=== PATIENT | male | born 1965 | race Caucasian/White ===

== ENCOUNTER 2022-06-06 08:36 | Emergency (ER) | payer BC, OTHER ==
[2022-06-06] MEDS ORDERED: NA CHLORIDE 0.9% 1,000 ML ONE (09:08)
[2022-06-06] MEDS ORDERED: MORPHINE 4 MG/ML SYR ONE ×2 (09:08→11:41)
[2022-06-06] MEDS ORDERED: ONDANSETRON 4 MG/2 ML VIAL ONE (09:08)
[2022-06-06 09:36] LABS: Absolute Lymphocytes (CBC) 1.1 K/uL (0.7-4.9); Hematocrit 38.8 % (39.6-49.0); Lymphocytes % 9.8 % (15.3-44.8); MCV 85.5 fL (80-100); MPV 8.2 fL (7.6-11.3); RBC Red Blood Cell Count 4.53 M/uL (4.33-5.43)
[2022-06-06 09:54] LABS: Albumin 3.9 g/dL (3.4-5.0); Bilirubin Total 0.7 mg/dL (0.2-1.0); Potassium 3.8 mmol/L (3.5-5.1); Protein, Total 7.4 g/dL (6.4-8.2)
--- NOTE | 2022-06-06 10:24 | RAD REPORT ---
EXAM DESCRIPTION: CT - Abdomen Pelvis W Contrast - 06/06/2022 10:12 am CLINICAL HISTORY: Abdominal pain/left lower quadrant pain COMPARISON: none. TECHNIQUE: Computed axial tomography of the abdomen pelvis was obtained. 100 cc Isovue-300 was admin istered intravenously. Oral contrast was not requested which limits evaluation of bowel and appendix All CT scans are performed using dose optimization technique as appropriate and may include automated exposure control or mA/KV adjustment according to patient size. FINDINGS: Mild fatty liver. The spleen, pancreas, adrenals and left kidney appear unremarkable Postsurgical changes involve the right kidney. Diverticula stem from the colon. Mild to moderate stranding adjacent to proximal sigmoid colon. No ab scess. No free air Small umbilical hernia. Small inguinal hernias IMPRESSION: Mild to moderate sigmoid diverticulitis
[2022-06-06 10:34] LABS: Urine Blood Trace-lysed (Negative); Urine Glucose Negative (Negative); Urine Protein Negative (Negative); Urine pH 5.5 (5.0-7.0)
[2022-06-06] MEDS ORDERED: CIPROFLOXACIN HCL 500 MG TAB ONE (11:03)
[2022-06-06] MEDS ORDERED: METRONIDAZOLE 500mg IVPB 500 MG/100 ML BAG IV ONE (11:03)
--- NOTE | 2022-06-06 11:33 | ER ---
Nurse's Notes [facility] Name: Drake Claudio Age: 56 yrs Sex: Male : 1965 Arrival Date: 06/06/2022 Time: 08:39 Bed 15 Private MD: Diagnosis: Diverticulitis of large intestine without perforation or abscess without bleeding Presentation: 06/06 08:49 Chief complaint: Patient states: LLQ pain since yesterday, denies n/v/d , hx of iw diverticulitis. Coronavirus screen: At this time, the client does not indicate any symptoms associated with coronavirus-19. Ebola Screen: Patient negative for fever greater than or equal to 101.5 degrees Fahrenheit, and additional compatible Ebola Virus Disease symptoms Patient denies exposure to infectious person. Patient denies travel to an Ebola-affected area in the 21 days before illness onset. No symptoms or risks identified at this time. Initial Sepsis Screen: Does the patient meet any 2 criteria? No. Patient's initial sepsis screen is negative. Does the patient have a suspected source of infection? No. Patient's initial sepsis screen is negative. Risk Assessment: Do you want to hurt yourself or someone else? Patient reports no desire to harm self or others. Onset of symptoms was June 05, 2022. 08:49 Method Of Arrival: Ambulatory iw 08:49 Acuity: JUSTINE 3 iw Historical: - Allergies: 08:50 No Known Allergies; iw - Home Meds: 08:50 duloxetine 30 mg oral cpDR 1 cap once daily [Active]; losartan-hydrochlorothiazide iw 100-12.5 mg oral tab 1 tab once daily [Active]; trazodone 100 mg Oral tab 1 tab nightly [Active]; atorvastatin 10 mg oral tab 1 tab once daily [Active]; - Immunization history:: Client reports receiving the 2nd dose of the Covid vaccine. - Social history:: Smoking status: Patient/guardian denies using tobacco, the patient reports quitting approximately 8 years ago. Screenin:05 Abuse screen: Denies threats or abuse. Nutritional screening: No deficits noted. vg1 Tuberculosis screening: No symptoms or risk factors identified. Fall Risk No fall in past 12 months (0 pts). No secondary diagnosis (0 pts). IV access (20 points). Ambulatory Aid- None/Bed Rest/Nurse Assist (0 pts). Gait- Normal/Bed Rest/Wheelchair (0 pts) Mental Status- Oriented to own ability (0 pts). Total Man Fall Scale indicates No Risk (0-24 pts). Assessment: 09:05 General: Appears in no apparent distress. uncomfortable, Behavior is calm, cooperative. vg1 Pain: Complains of pain in left lower quadrant Pain currently is 3 out of 10 on a pain scale. at worst was 7 out of 10 on a pain scale. Pain began 2-3 days ago. Neuro: Level of Consciousness is awake, alert, obeys commands, Oriented to person, place, time, situation. Cardiovascular: Patient's skin is warm and dry. Respiratory: Airway is patent Respiratory effort is even, unlabored. GI: Abdomen is round non-distended, Last BM was May 07, 2022. stated 'small' BM this morning 'not usual BM' Bowel sounds present X 4 quads. Abdomen is tender to palpation in left lower quadrant Patient currently denies diarrhea, nausea, vomiting. : No signs and/or symptoms were reported regarding the genitourinary system. EENT: No signs and/or symptoms were reported regarding the EENT system. Derm: Skin is intact, is healthy with good turgor. Musculoskeletal: Circulation, motion, and sensation intact. 10:30 Reassessment: Patient appears in no apparent distress at this time. No changes from vg1 previously documented assessment. Patient and/or family updated on plan of care and expected duration. Pain level reassessed. Patient is alert, oriented x 3, equal unlabored respirations, skin warm/dry/pink. 11:30 Reassessment: Patient appears in no apparent distress at this time. Patient and/or vg1 family updated on plan of care and expected duration. Pain level reassessed. Patient is alert, oriented x 3, equal unlabored respirations, skin warm/dry/pink. Vital Signs: 08:49 BP 135 / 74; Pulse 76; Resp 16; Temp 98.5; Pulse Ox 95% on R/A; Weight 117.93 kg; iw Height 5 ft. 11 in. (180.34 cm); Pain 7/10; 09:24 BP 127 / 79; Pulse 80; Resp 16; Pulse Ox 97% on R/A; vg1 10:35 BP 126 / 73; Pulse 67; Resp 16; Pulse Ox 97% on R/A; vg1 08:49 Body Mass Index 36.26 (117.93 kg, 180.34 cm) iw ED Course: 08:39 Patient arrived in ED. am2 08:47 Grzegorz Parker NP is PHCP. pm1 08:47 Sahil Larose MD is Attending Physician. pm1 08:48 Chelsey Rick, RN is Primary Nurse. vg1 08:50 Triage completed. iw 08:51 Arm band placed on. iw 09:05 Patient has correct armband on for positive identification. Bed in low position. Call vg1 light in reach. Side rails up X 1. Pulse ox on. NIBP on. Door closed. Warm blanket given. 09:05 No provider procedures requiring assistance completed. vg1 09:10 Inserted saline lock: 20 gauge in left antecubital area, using aseptic technique. Blood vg1 collected. 09:10 Initial lab(s) drawn, by al, sent to lab. vg1 10:14 CT Abd/Pelvis - IV Contrast Only In Process Unspecified. EDMS 11:58 IV discontinued, intact, bleeding controlled, No redness/swelling at site. Pressure vg1 dressing applied. Administered Medications: 09:11 Drug: NS 0.9% 1000 ml Route: IV; Rate: 1 bolus; Site: left antecubital; vg1 11:58 Follow up: IV Status: Completed infusion; IV Intake: 1000ml vg1 09:11 Drug: Zofran (Ondansetron) 4 mg Route: IVP; Site: left antecubital; vg1 11:59 Follow up: Response: No adverse reaction; Marked relief of symptoms vg1 09:13 Drug: morphine 4 mg {Note: RASS 0.} Route: IVP; Infused Over: 4 mins; Site: left vg1 antecubital; 10:41 Follow up: Response: No adverse reaction; No change in condition vg1 10:59 Drug: Cipro (ciprofloxacin) 500 mg Route: PO; vg1 11:58 Follow up: Response: No adverse reaction vg1 11:04 Drug: Flagyl (metroNIDAZOLE) 500 mg Volume: 100 ml; Route: IVPB; Rate: 200 ml/hr; vg1 Infused Over: 30 mins; Site: left antecubital; 11:58 Follow up: IV Status: Completed infusion; IV Intake: 100ml vg1 11:34 Drug: morphine 4 mg {Note: rass0.} Route: IVP; Infused Over: 4 mins; Site: left vg1 antecubital; :59 Follow up: Response: No adverse reaction; Pain is decreased vg1 Medication: 09:05 VIS not applicable for this client. vg1 Intake: 11:58 IV: 100ml; Total: 100ml. vg1 11:58 IV: 1000ml; Total: 1100ml. vg1 Outcome: 11:33 Discharge ordered by MD. pm1 11:57 Discharged to home ambulatory. vg1 11:57 Condition: good 11:57 Discharge instructions given to patient, Instructed on discharge instructions, follow up and referral plans. medication usage, Demonstrated understanding of instructions, follow-up care, medications, Prescriptions given X 3. 11:59 Patient left the ED. vg1 Signatures: Dispatcher [employer] EDPamela Mondragon RN RN iw Grzegorz Parker, MAG [employer]ER pm1 Teagan Penn Victoria RN RN vg1 Corrections: (The following items were deleted from the chart) 09:20 09:19 Inserted saline lock: 20 gauge in left antecubital area, using aseptic technique. vg1 Blood collected. vg1 09:24 09:05 GI: Abdomen is round non-distended, Last BM was May 07, 2022. stated 'small' BM vg1 this morning 'not usual BM' Bowel sounds present X 4 quads. Abdomen is tender to palpation in left lower quadrant vg1
--- NOTE | 2022-06-06 11:34 | EDPHYS ---
Physician Documentation [facility] Name: Drake Claudio Age: 56 yrs Sex: Male : 1965 Arrival Date: 06/06/2022 Time: 08:39 Bed 15 Private MD: ED Physician Sahil Larose HPI: 06/06 09:06 This 56 yrs old Male presents to ER via Ambulatory with complaints of Abdominal Pain - pm1 LLQ. 09:06 The patient presents with abdominal pain in the left lower quadrant. Onset: The pm1 symptoms/episode began/occurred yesterday. The symptoms do not radiate. Associated signs and symptoms: none. Pertinent negatives: nausea, vomiting, and diarrhea, chest pain, shortness of breath. The symptoms are described as crampy, sharp. Modifying factors: The symptoms are alleviated by nothing, the symptoms are aggravated by nothing. Severity of pain: in the emergency department the pain is actually worse. The patient has experienced similar episodes in the past, a few times, today's symptoms are similar. Historical: - Allergies: 08:50 No Known Allergies; iw - Home Meds: 08:50 duloxetine 30 mg oral cpDR 1 cap once daily [Active]; losartan-hydrochlorothiazide iw 100-12.5 mg oral tab 1 tab once daily [Active]; trazodone 100 mg Oral tab 1 tab nightly [Active]; atorvastatin 10 mg oral tab 1 tab once daily [Active]; - Immunization history:: Client reports receiving the 2nd dose of the Covid vaccine. - Social history:: Smoking status: Patient/guardian denies using tobacco, the patient reports quitting approximately 8 years ago. ROS: 09:06 Constitutional: Negative for fever, chills, and weight loss, Cardiovascular: Negative pm1 for chest pain, palpitations, and edema, Respiratory: Negative for shortness of breath, cough, wheezing, and pleuritic chest pain. 09:06 Back: Negative for injury and pain, : Negative for injury, bleeding, discharge, and swelling, MS/Extremity: Negative for injury and deformity, Skin: Negative for injury, rash, and discoloration, Neuro: Negative for headache, weakness, numbness, tingling, and seizure. 09:06 Abdomen/GI: Positive for abdominal pain, of the left lower quadrant, Negative for nausea, vomiting, and diarrhea. 09:06 All other systems are negative. Exam: 09:06 Constitutional: This is a well developed, well nourished patient who is awake, alert, pm1 and in no acute distress. Head/Face: Normocephalic, atraumatic. 09:06 Back: No spinal tenderness. No costovertebral tenderness. Full range of motion. Skin: Warm, dry with normal turgor. Normal color with no rashes, no lesions, and no evidence of cellulitis. MS/ Extremity: Pulses equal, no cyanosis. Neurovascular intact. Full, normal range of motion. 09:06 Cardiovascular: Exam negative for acute changes, Rate: normal, Rhythm: regular, Pulses: no pulse deficits are appreciated. 09:06 Respiratory: Exam negative for acute changes, respiratory distress, shortness of breath. 09:06 Abdomen/GI: Inspection: obese Palpation: soft, in all quadrants, mild abdominal tenderness, in the left lower quadrant. 09:06 Neuro: Exam negative for acute changes, Orientation: is normal, Mentation: is normal, Motor: is normal, moves all fours. Vital Signs: 08:49 BP 135 / 74; Pulse 76; Resp 16; Temp 98.5; Pulse Ox 95% on R/A; Weight 117.93 kg; iw Height 5 ft. 11 in. (180.34 cm); Pain 7/10; 09:24 BP 127 / 79; Pulse 80; Resp 16; Pulse Ox 97% on R/A; vg1 10:35 BP 126 / 73; Pulse 67; Resp 16; Pulse Ox 97% on R/A; vg1 08:49 Body Mass Index 36.26 (117.93 kg, 180.34 cm) iw MDM: 08:53 Patient medically screened. pm1 11:32 Data reviewed: vital signs. Data interpreted: Pulse oximetry: on room air is 97 %. pm1 Interpretation: normal. Counseling: I had a detailed discussion with the patient and/or guardian regarding: the historical points, exam findings, and any diagnostic results supporting the discharge/admit diagnosis, lab results, radiology results, the need for outpatient follow up, to return to the emergency department if symptoms worsen or persist or if there are any questions or concerns that arise at home. 06/06 08:57 Order name: CBC with Diff; Complete Time: 10:08 pm1 06/06 08:57 Order name: CMP; Complete Time: 10:08 pm1 06/06 08:57 Order name: Lipase; Complete Time: 10:08 pm1 06/06 08:57 Order name: CT Abd/Pelvis - IV Contrast Only; Complete Time: 10:47 pm1 06/06 10:34 Order name: Urine Dipstick-Ancillary; Complete Time: 10:47 EDMS 06/06 08:57 Order name: IV Saline Lock; Complete Time: 09:24 pm1 06/06 08:57 Order name: Labs collected and sent; Complete Time: 09:24 pm1 06/06 08:57 Order name: Urine Dipstick-Ancillary (obtain specimen); Complete Time: 10:41 pm1 Administered Medications: 09:11 Drug: NS 0.9% 1000 ml Route: IV; Rate: 1 bolus; Site: left antecubital; vg1 11:58 Follow up: IV Status: Completed infusion; IV Intake: 1000ml vg1 09:11 Drug: Zofran (Ondansetron) 4 mg Route: IVP; Site: left antecubital; vg1 11:59 Follow up: Response: No adverse reaction; Marked relief of symptoms vg1 09:13 Drug: morphine 4 mg {Note: RASS 0.} Route: IVP; Infused Over: 4 mins; Site: left vg1 antecubital; 10:41 Follow up: Response: No adverse reaction; No change in condition vg1 10:59 Drug: Cipro (ciprofloxacin) 500 mg Route: PO; vg1 11:58 Follow up: Response: No adverse reaction vg1 11:04 Drug: Flagyl (metroNIDAZOLE) 500 mg Volume: 100 ml; Route: IVPB; Rate: 200 ml/hr; vg1 Infused Over: 30 mins; Site: left antecubital; 11:58 Follow up: IV Status: Completed infusion; IV Intake: 100ml vg1 11:34 Drug: morphine 4 mg {Note: rass0.} Route: IVP; Infused Over: 4 mins; Site: left vg1 antecubital; 11:59 Follow up: Response: No adverse reaction; Pain is decreased vg1 Disposition: 12:58 Co-signature as Attending Physician, Sahil Larose MD. rn Disposition Summary: 06/06/22 11:33 Discharge Ordered Location: Home pm1 Problem: new pm1 Symptoms: have improved pm1 Condition: Stable pm1 Diagnosis - Diverticulitis of large intestine without perforation or abscess without bleeding pm1 Followup: pm1 - With: Emergency Department - When: As needed - Reason: Worsening of condition Followup: pm1 - With: Private Physician - When: 2 - 3 days - Reason: Recheck today's complaints, Continuance of care, Re-evaluation by your physician Discharge Instructions: - Discharge Summary Sheet pm1 - Clear Liquid Diet, Adult pm1 - Diverticulitis pm1 Forms: - Medication Reconciliation Form pm1 - Thank You Letter pm1 - Antibiotic Education pm1 - Prescription Opioid Use pm1 - Work release form vg1 Prescriptions: - Flagyl 500 mg Oral Tablet - take 1 tablet by ORAL route every 6 hours for 10 days; 40 tablet; Refills: 0, pm1 Product Selection Permitted - Cipro 500 mg Oral Tablet - take 1 tablet by ORAL route every 12 hours for 7 days; 14 tablet; Refills: 0, pm1 Product Selection Permitted - Tramadol 50 mg Oral Tablet - take 1 tablet by ORAL route every 8 hours as needed; 12 tablet; Refills: 0, pm1 Product Selection Permitted Signatures: Dispatcher [employer] Pamela Lopez, Sahil Fernandez RN, MD MD rn Marinas, Patrick, NP WATCH REPAIR TECHNICIAN pm1 Chelsey Rick RN RN vg1
[2022-06-06 12:14] VITALS: TEMP 98.5
[2022-06-06 12:16] VITALS: O2SAT 97
[2022-06-06 12:17] VITALS: BP 126/73
== END 2022-06-06 11:59 | disposition home or self-care (01) ==
LOC: ER 08:36
DX: K57.32 Diverticulitis of large intestine without perforation or abscess without bleeding (principal)
CPT/HCPCS: 85025; 36415; 81003; 83690; 80053; 74177; Q9967; J7030; J3490; J2405; 96361; 96365; 96375; 99284

== ENCOUNTER 2022-08-21 08:00 | Emergency (ER) | payer OTHER ==
--- OUTSIDE RECORDS SUMMARY | 2022-08-21 08:05 | XMS REPORT | Clinical Summary ---
:1965 Author Organization [facility] MD [facility] Address [address] [place] [address] Care Team Providers Name Role Phone Angelo Toscano MD Primary Care Provider Angelo Toscano MD Unavailable Allergies No known active allergies Medications Medication Sig Dispensed Refills Start Date End Date Status atorvastatin Take 10 mg by 0 Act maria de jesus (LIPITOR) 10 mg mouth daily. tablet aspirin 81 mg EC Take 81 mg by 0 Active tablet mouth daily. co-enzyme Q-10 30 Take 100 mg by 0 Active mg capsule mouth daily. fish oil-omega-3 Take 2 g by 0 A ctive fatty acids mouth daily. 300-1,000 mg capsule traZODone Take 50 mg by 0 06/06/2020 Activ e (DESYREL) 50 mg mouth nightly tablet as needed. losartan-hydrochl 100 tablets. 0 04/26/2021 Active orothiazide (HYZAAR) 100-12.5 mg per tablet DULoxetine duloxetine 30 mg capsule,delayed release 0 Active (CYMBALTA) 30 mg TAKE 1 CAPSULE BY MOUTH DAILY capsule baclofen baclofen 10 mg 0 Activ e (LIORESAL) 10 mg tablet tablet valsartan-hydroch Take 1 tablet 0 07/15/20 2 Discontinued lorothiazide by mouth daily. 2 ( Not Applicable) (DIOVAN-HCT) 160 mg-12.5 mg per tablet Active Problems Problem Noted Date Malignant tumor of kidney 06/18/2020 Cancer Staging: Pathologic: Stage I (pT1 b, pN0, cM0) - Unsigned Renal mass 01/31/2016 Overview: Pt. Admitted for Right REnal Mass; and i s now s/p Right Partial Nephrectomy Diverticulitis 12/30/2015 Encounters Date Type Specialty Care Team Description 07/15/2022 Office Visit Genitourinary Oncology Osai, Perso nal history of ZAIRA Newell cancer of kidne y 07/15/2022 Ancillary Procedure Radiology [place], Personal history of ZAIRA Newell cancer of kidne y 07/15/2022 Ancillary Procedure Radiology Demetrice, Personal history of malignant neoplasm of kidney; ZAIRA Newell Personal histor y of cancer of kidney 07/15/2022 Travel after 08/21/2021 Immunizations Name Administration Dates Next Due Influenza, Quadrivalent 08/24/2018 Surgical History Surgery Date Site/Laterality Comments APPENDECTOMY TONSILLECTOMY 11/29/1970 - 11/28/1971 Bilateral COLONOSCOPY 11/29/2014 - 11/28/2015 normal per patient Medical History Medical History Date Comments Cancer Hypertension Hyperlipidemia Social History Tobacco Use Types Packs/Day Years Used Date Former Smoker Cigarettes 1 Smokeless Tobacco: Former User Q uit: 01/03/2015 Alcohol Use Standard Drinks/Week Comments No 0 (1 standard drink = 0.6 oz pure alcoho l) Sex Assigned at Date Recorded Not on file Job Start Date Occupation Industry Not on file Not on file Not on file Obstetrics History Last Filed Vital Signs Vital Sign Reading Time Taken Comments Blood Pressure 124/76 07/15/2022 10:17 AM CDT Pulse 74 07/15/2022 10:17 AM CDT Temperature 36.7 C (98.1 F) 07/15/2022 10:17 AM CDT Respiratory Rate 18 07/15/2022 10:17 AM CDT Oxygen Saturation 96% 07/15/2022 10:17 AM CDT Inhaled Oxygen Concentration - - Weight 120.6 kg (265 lb 14 oz) 07/15/2022 10:17 AM CDT Height - - Body Mass Index 37.1 03/21/2019 8:06 AM CDT Plan of Treatment Date Type Specialty Care Team Description 07/15/2023 Lab Lab Reece Suresh F MACHINE MILKER [address] [place], [place] [address] (Wo rk) 07/21/2023 Ancillary Procedure Radiology Shari Suresh, MEDICAL CARE ADMINISTRATOR [address] [place], [place] [address] (Wo rk) 07/21/2023 Ancillary Procedure Radiology Shari Suresh, MEDICAL CARE ADMINISTRATOR [address] [place], [place] [address] (Wo rk) 07/21/2023 Office Visit Genitourinary Oncology Kendall Suresh, MEDICAL CARE ADMINISTRATOR [address] [place], [place] [address] (Wo rk) Health Maintenance Due Date Last Done Comments COVID-19 Vaccination (3 - Booster for 07/24/2021 02/21/2021 , 01/31/2021 Pfizer series) Medical Devices Implanted Type Area Woven Blind Loom Tender Device Shelf Model / Identifier Expiration Serial / Date Lot Beeson Tef 4x4in - Sn/A Implant Right: BARD PERIPHERAL [id number] / Implanted: Qty: 1 on 01/31/2016 by Angelo Toscano MD at [facility] Kidney VASCULAR N/A / [id number] Tisseel 10ml - [id number] Tissue Midline: [id number] / Implanted: Qty: 1 on 01/31/2016 by Angelo Toscano MD at [facility] Abdomen BIOSCIENCE [id number] / [id number] Procedures Procedure Name Priority Date/Time Associated Comments Diagnosis CT ABDOMEN W CONTRAST Routine 07/15/2022 9:44 Personal history Results for this AM CDT of cancer of procedure are i n kidney the results section. CT LUNG SCREENING Routine 07/15/2022 9:44 Personal history Res ults for this AM CDT of malignant procedure are i n neoplasm of kidney the resul ts section. XR CHEST 2 VW Routine 07/15/2022 8:55 Personal history Results for this AM CDT of cancer of procedure are i n kidney the results section. FRACTIONATED BILIRUBIN Routine 07/15/2022 7:41 Personal histor y Results for this AM CDT of cancer of procedure are i n kidney the results section. TOTAL PROTEIN Routine 07/15/2022 7:41 Personal history Results for this AM CDT of cancer of procedure are i n kidney the results section. ASPARTATE Routine 07/15/2022 7:41 Personal history Results for this AMINOTRANSFERASE AM CDT of cancer of procedure a re in kidney the results section. ALANINE AMINOTRANSFERASE Routine 07/15/2022 7:41 Personal hist ory Results for this AM CDT of cancer of procedure are i n kidney the results section. ALKALINE PHOSPHATASE Routine 07/15/2022 7:41 Personal history Results for this AM CDT of cancer of procedure are i n kidney the results section. ALBUMIN LEVEL Routine 07/15/2022 7:41 Personal history Results for this AM CDT of cancer of procedure are i n kidney the results section. CALCIUM LEVEL TOTAL Routine 07/15/2022 7:41 Personal history R esults for this AM CDT of cancer of procedure are i n kidney the results section. .GLOMERULAR FILTRATION Routine 07/15/2022 7:41 Personal histor y Results for this RATE AM CDT of cancer of procedure are i n kidney the results section. SERUM CREATININE Routine 07/15/2022 7:41 Personal history Resu lts for this AM CDT of cancer of procedure are i n kidney the results section. ELECTROLYTE PANEL Routine 07/15/2022 7:41 Personal history Res ults for this AM CDT of cancer of procedure are i n kidney the results section. BLOOD UREA NITROGEN Routine 07/15/2022 7:41 Personal history R esults for this AM CDT of cancer of procedure are i n kidney the results section. GLUCOSE LEVEL Routine 07/15/2022 7:41 Personal history Results for this AM CDT of cancer of procedure are i n kidney the results section. MANUAL DIFFERENTIAL Routine 07/15/2022 7:41 Personal history R esults for this AM CDT of cancer of procedure are i n kidney the results section. Results CBC Routine 07/15/2022 7:41 Personal history Results for this AM CDT of cancer of procedure are i n kidney the results section. COMPREHENSIVE METABOLIC Routine 07/15/2022 7:41 Personal histo ry PANEL AM CDT of cancer of kidney LACTATE DEHYDROGENASE Routine 07/15/2022 7:41 Personal history Results for this AM CDT of cancer of procedure are i n kidney the results section. COMPLETE BLOOD COUNT W/ Routine 07/15/2022 7:41 Personal histo ry DIFFERENTIAL AM CDT of cancer of kidney after 08/21/[address] Lung Screening (07/15/2022 9:44 AM CDT) Anatomical Region Laterality Modality Lung, Chest Computed Tomography Specimen (Source) Anatomical Collection Method Collection Time Re ceived Time Location / / Volume Laterality 07/15/2022 10:33 AM CDT Addenda Addendum by Marbella Johnson M D on 07/22/2022 12:02 PM CDT Addendum issued to clarify Examination: CT LUNG SCREENING, 07/15/2022 9:44 AM Impressions 07/15/2022 10:49 AM CDT No evidence of nodules suspicious for metastases. No adenopathy. Narrative 07/15/2022 10:49 AM CDT FULL RESULT: Examination: Low dose follow-up, 07/15/20 9:44 AM Clinical History: Personal history of ma lignant neoplasm of kidney Indication: No signs or symptoms of lung cancer Comparison: None Technique: Spiral CT of the chest is per formed without intravenous contrast using low radiation dose technique. Findings: Lung parenchyma and pleura: Calcified granuloma in the right upper l obe. There is a 0.6 cm perifissural nodule, likely a lymph node. No consolidation. No pleural effusion. Subsegmental atelectasis in the middle l obe. Mediastinum: No adenopathy. There are small lymph nod es in the axillary regions most likely reactive. Upper abdomen: The adrenal glands are within normal brown its. Osseous structures: No suspicious lesions. Lines and tubes: None. Procedure Note Marbella Johnson MD - 07/15/20 FULL RESULT: Examination: Low dose follow-up, 07/15/20 9:44 AM Clinical History: Personal history of ma lignant neoplasm of kidney Indication: No signs or symptoms of lung cancer Comparison: None Technique: Spiral CT of the chest is per formed without intravenous contrast using low radiation dose technique. Findings: Lung parenchyma and pleura: Calcified granuloma in the right upper l obe. There is a 0.6 cm perifissural nodule, likely a lymph node. No consolidation. No pleural effusion. Subsegmental atelectasis in the middle l obe. Mediastinum: No adenopathy. There are small lymph nod es in the axillary regions most likely reactive. Upper abdomen: The adrenal glands are within normal brown its. Osseous structures: No suspicious lesions. Lines and tubes: None. IMPRESSION: No evidence of nodules suspicious for me tastases. No adenopathy. [facility] IM CT ORDERABLES CT Abdomen with Contrast (07/15/2022 9:44 AM CDT) Anatomical Region Laterality Modality Abdomen Computed Tomography Specimen (Source) Anatomical Collection Method Collection Time Re ceived Time Location / / Volume Laterality 07/15/2022 9:52 AM CDT Impressions 07/15/2022 10:03 AM CDT 1. No evidence of local recurrence or me tastatic disease. 2. Stable postoperative changes and inci dental findings. Narrative 07/15/2022 10:03 AM CDT Examination: CT ABDOMEN W CONTRAST, 07/15 9:44 AM Clinical History: Personal history of ca ncer of kidney. Renal cell carcinoma, status post right partial nephrectomy 01/31/2016. Indication: Surveillance for mets and re currence Comparison: CT 07/09/2021 Technique: CT of the abdomen was perform ed with intravenous contrast. Findings: Nonspecific punctate juxtapleural nodule in the right lower lobe (series 5, image 1). Stable postsurgical changes of right par tial nephrectomy. No evidence of local recurrence. Probable small cortical cyst in the interpolar region of the left kidney (6/166). The kidneys show symmetric co ntrast enhancement and excretion, withou t hydronephrosis. Patent renal veins and IVC. No pathologically enlarged lymph nodes i n the abdomen. Stable subcentimeter hypodensity in the periphery of the right liver (6/33), probably benign in etiology. No suspicious liver mass. Patent portal and hepatic veins. No biliary dilatation and the gallbladder is present. The pancreas, adrenal glands and kidneys show no suspicious lesions. The bowel is unobstructed. Incidental co lonic diverticula. No ascites. No destructive osseous lesions. Procedure Note Scooby Carroll MD - 07/15/2022Formatt ing of this note might be different from the original. Examination: CT ABDOMEN W CONTRAST, 07/15 9:44 AM Clinical History: Personal history of ca ncer of kidney. Renal cell carcinoma, status post right partial nephrectomy 01/31/2016. Indication: Surveillance for mets and re currence Comparison: CT 07/09/2021 Technique: CT of the abdomen was perform ed with intravenous contrast. Findings: Nonspecific punctate juxtapleural nodule in the right lower lobe (series 5, image 1). Stable postsurgical changes of right par tial nephrectomy. No evidence of local recurrence. Probable small cortical cyst in the interpolar region of the left kidney (6/166). The kidneys show symmetric contrast enhancement and excretion, without hydronephrosis. P atent renal veins and IVC. No pathologically enlarged lymph nodes i n the abdomen. Stable subcentimeter hypodensity in the periphery of the right liver (6/33), probably benign in etiology. No suspicious liver mass. Patent portal and hepatic veins. No biliary dilatation and the gallbladder is present. The pancreas, adrenal glands and kidneys show no suspicious lesions. The bowel is unobstructed. Incidental co lonic diverticula. No ascites. No destructive osseous lesions. IMPRESSION: 1. No evidence of local recurrence or me tastatic disease. 2. Stable postoperative changes and inci dental findings. Reece Suresh MEDICAL CARE ADMINISTRATOR [facility] CT ORDERABLES X-ray Chest 2 Views (07/15/2022 8:55 AM CDT) Anatomical Region Laterality Modality Chest Digital Radiography Specimen (Source) Anatomical Collection Method Collection Time Re ceived Time Location / / Volume Laterality 07/15/2022 9:01 AM CDT Impressions 07/15/2022 9:03 AM CDT There is no sign of acute or metastatic intrathoracic disease. Narrative 07/15/2022 9:03 AM CDT FULL RESULT: Examination: Chest, 2 views, 07/15/2022 8 :55 AM Clinical History: Personal history of ca ncer of kidney: Assess for active or metastatic intrathoracic disease. Clarify subsequent treatment strategy. Indication: Other:, Surveillance for met s: Assess for active or metastatic intrathoracic disease. Clarify subsequent treatment strategy. Kidney cancer. Comparison: 07/09/2021 Technique: Posterior, lateral and dual-e nergy radiograph of the chest Findings: Lung parenchyma:There are there are no n oncalcified pulmonary nodules. There is no sign of consolidation to suggest pneumonia. Stable band opacity in the right lower lung medially likely due to scarring. Nodes:There is no enlargement of the med iastinal or hilar regions to suggest underlying enlarged nodes. Cardiac: The cardiopericardial silhouett e is not enlarged. Pleura:There is no sign of a pleural eff usion. Procedure Note Julio Epstein MD - 07/15/2022Formatt ing of this note might be different from the original. FULL RESULT: Examination: Chest, 2 views, 07/15/2022 8 :55 AM Clinical History: Personal history of ca ncer of kidney: Assess for active or metastatic intrathoracic disease. Clarify subsequent treatment strategy. Indication: Other:, Surveillance for met s: Assess for active or metastatic intrathoracic disease. Clarify subsequent treatment strategy. Kidney cancer. Comparison: 07/09/2021 Technique: Posterior, lateral and dual-e nergy radiograph of the chest Findings: Lung parenchyma:There are there are no n oncalcified pulmonary nodules. There is no sign of consolidation to suggest pneumonia. Stable band opacity in the right lower lung medially likely due to scarring. Nodes:There is no enlargement of the med iastinal or hilar regions to suggest underlying enlarged nodes. Cardiac: The cardiopericardial silhouett e is not enlarged. Pleura:There is no sign of a pleural eff usion. IMPRESSION: There is no sign of acute or metastatic intrathoracic disease. Reece [facility] DI[facility]NOSTIC IMAGING ORDER [place] .Serum Creatinine (07/15/2022 7:41 AM CDT) athologist Signature Creatinine 0.89 0.67 - 1.17 [place] mg/dL Comment: [facility] performed at [facility], [address] [place] [address], [place] [address] Specimen Anatomical Collection Method Collection Time Receive d Time (Source) Location / / Volume Laterality Blood 07/15/2022 7:41 AM 7:49 CDT AM CDT Reece MENESES LAB BLOOD ORDERABLES Performing Organization Address City/State/[place] [address] [place] [address] .CBC (07/15/2022 7:41 AM CDT) athologist Signature WBC 5.4 4.0 - 11.0 [place] K/uL Comment: All components of the CBC perfo rmed at [facility], [address] [place] [address], [place] [address] RBC 4.78 4.50 - 6.00 M/uL [place] Comment: All components of the CBC perfo rmed at [facility], [address] [place] [address], [place] [address] Hgb 14.2 14.0 - 18.0 gm/dL [place] Comment: As part of CBC or as an individ ual orderable testing performed at [facility], [address] [place] [address], [place] [address] Hct 42.2 40.0 - 54.0 % [place] Comment: As part of CBC testing performe d at [facility], [address] [place] [address], [place] [address] MCV 88 82 - 98 fL [place] Comment: As part of CBC testing performe d at [facility], [address] [place] [address], [place] [address] MCH 29.7 27.0 - 31.0 pg [place] Comment: As part of CBC testing performe d at [facility], [address] [place] [address] MCHC 33.6 31.0 - 36.0 gm/dL [place] Comment: As part of CBC testing performe d at [facility], [address] [place] [address] RDW-SD 40.2 35.1 - 46.3 fL [place] Comment: As part of CBC testing performe d at [facility], [address] [place] [address] RDW-CV 12.5 12.0 - 15.5 % [place] Comment: As part of CBC testing performe d at [facility], [address] [place] [address] Platelet count 236 140 - 440 K/uL [facility] CIT [facility] Comment: As part of CBC or an individual orderable testing performed at [facility], [address] [place] [address] MPV 9.6 4.0 - 10.4 fL [place] Comment: As part of CBC testing performe d at [facility], [address] [place] [address], [place] [address] Specimen Anatomical Collection Method Collection Time Receive d Time (Source) Location / / Volume Laterality Blood 07/15/2022 7:41 AM 7:49 CDT AM CDT Reece DELGADOP LAB BLOOD ORDERABLES Performing Organization Address City/State/ZIP Code Phon e Number [place], [place] [id number] [place] [address] Glomerular Filtration Rate (07/15/2022 7:41 AM CDT) athologist Signature eGFR-AA 110 >=60 [place] mL/min/1.73 sq. m Comment: Normal eGFR >= 60 mL/min/1.73 m2 Note: The eGFR is calculated using the C KD-EPI equation. The eGFR declines with age. eGFR <60 mL/min/1.73 m2 is considered as "decreased". This equation should only be used for patients 18 and older. According to the National Kidney Found[employer] ion's Kidney Disease Outcome Quality Initiative (KDOQI) classification and 2012 Kidney Disease Improving Global Outcomes (KDIGO) Clinical Practice Guideline, the stage of CKD should be categorized based on estimated GFR. Stage Description GFR mL/min/1. 73 m2 1 Normal or high GFR >=90 2 Mildly decreased GFR 60-89 3a Mildly to moderately decreased GFR 45-59 3b Moderately to severely decreased GFR 30-44 4 Severely decreased GFR 15-29 5 Kidney failure <15 Testing performed at [facility], [address] [place] [address], [place] [address] eGFR-NATHAN 95 >=60 mL/min/1.73 sq. m [place] Comment: Normal eGFR >= 60 mL/min/1.73 m2 Note: The eGFR is calculated using the C KD-EPI equation. The eGFR declines with age. eGFR <60 mL/min/1.73 m2 is considered as "decreased". This equation should only be used for patients 18 and older. According to the National Kidney [employer] ion's Kidney Disease Outcome Quality Initiative (KDOQI) classification and 2012 Kidney Disease Improving Global Outcomes (KDIGO) Clinical Practice Guideline, the stage of CKD should be categorized based on estimated GFR. Stage Description GFR mL/min/1. 73 m2 1 Normal or high GFR >=90 2 Mildly decreased GFR 60-89 3a Mildly to moderately decreased GFR 45-59 3b Moderately to severely decreased GFR 30-44 4 Severely decreased GFR 15-29 5 Kidney failure <15 Testing performed at [facility], [address] [place] [address] Specimen Anatomical Collection Method Collection Time Receive d Time (Source) Location / / Volume Laterality Blood 07/15/2022 7:41 AM 7:49 CDT AM CDT Reece Suresh MEDICAL CARE ADMINISTRATOR LAB BLOOD ORDERABLES Performing Organization Address City/State/[place] [address] [place] [address] Fractionated Bilirubin (07/15/2022 7:41 AM CDT) athologist Signature Bili Total 0.9 <=1.2 mg/dL [place] Comment: Indocyanine Green (ICG) may cause falsel y elevated bilirubin results. Total and direct bilirubin must not be measured from samples containing indocyanine green. False elevation of total bilirubin can b e seen in patients with IgG concentrations above 28 g/L. Testing performed at [facility], [address] [place] [address] Bili Direct 0.2 <=0.3 mg/dL [place] Comment: Indocyanine Green (ICG) may cause falsel y elevated bilirubin results. Total and direct bilirubin must not be measured from samples containing indocyanine green. Testing performed at [facility], [address] [place] [address], [place] [address] Bili Indirect 0.7 0.0 - 0.9 mg/dL [facility] Comment: Testing performed at [facility], [address] [place] [address], [place] [address] Specimen Anatomical Collection Method Collection Time Receive d Time (Source) Location / / Volume Laterality Blood 07/15/2022 7:41 AM 7:49 CDT AM CDT Reece DELGADOP LAB BLOOD ORDERABLES Performing Organization Address City/State/ZIP Code Phon e Number [facility] [place] [address] [place] [address] (ABNORMAL) Differential (07/15/2022 7:41 AM CDT) athologist Signature Neutrophil % 57.4 42.0 - 66.0 [place] % Comment: All components of the Different ial performed at [facility], [address] [place] [address] Lymphocyte % 26.1 24.0 - 44.0 % [place] Comment: As part of the Differential selin ting performed at [facility], [address] [place] [address] Monocyte % 10.5 (H) 2.0 - 7.0 % [place] Comment: As part of the Differential selin ting performed at [facility], [address] [place] [address] Eosinophil % 5.1 (H) 1.0 - 4.0 % [place] Comment: As part of the Differential selin ting performed at [facility], [address] [place] [address] Basophil % 0.7 0.0 - 1.0 % [place] Comment: As part of the Differential selin ting performed at [facility], [address] [place] [address] IGRE % 0.2 0.0 - 0.4 % [place] Comment: IGRE % count includes Metamyelocytes, My elocytes, and Promyelocytes. As part of the Differential testing perf ormed at [facility], [address] [place] [address] Neutrophil Abs 3.12 1.70 - 7.30 K/uL OCTAVIAN[facility] Mosley ITE[facility] Comment: As part of the Differential selin ting performed at [facility], [address] [place] [address] Lymphocyte Abs 1.42 1.00 - 4.80 K/uL [facility] Comment: As part of the Differential selin ting performed at [facility], [address] [place] [address] Monocyte Abs 0.57 0.08 - 0.70 K/uL [facility] Comment: As part of the Differential selin ting performed at [facility], [address] [place] [address] Eosinophil Abs 0.28 0.04 - 0.40 K/uL [facility] Comment: As part of the Differential selin ting performed at [facility], [address] [place] [address] Basophil Abs 0.04 0.00 - 0.10 K/uL [facility] Comment: As part of the Differential selin ting performed at [facility], [address] [place] [address] IG Abs 0.01 0.00 - 0.04 K/uL [place] Comment: As part of the Differential selin ting performed at [facility], [address] [place] [address] Specimen Anatomical Collection Method Collection Time Receive d Time (Source) Location / / Volume Laterality Blood 07/15/2022 7:41 AM 2 7:49 CDT AM CDT Reece Suresh MEDICAL CARE ADMINISTRATOR LAB BLOOD ORDERABLES Performing Organization Address City/[facility] Code Phon e Number [place], [place] [id number] [place] [address] BUN (07/15/2022 7:41 AM CDT) P athologist Signature BUN 20 6 - 23 mg/dL [place] Comment: Testing performed at [facility], [address] [place] [phone] Specimen Anatomical Collection Method Collection Time Receive d Time (Source) Location / / Volume Laterality Blood 07/15/2022 7:41 AM 2 7:49 CDT AM CDT Reece Suresh MEDICAL CARE ADMINISTRATOR LAB BLOOD ORDERABLES Performing Organization Address City/State/ZIP Code Phon e Number [place], [place] [phone] [place] [address] ALT (07/15/2022 7:41 AM CDT) P athologist Signature ALT 38 <=41 U/L [place] Comment: Testing performed at [facility], [address] [place] [phone] Specimen Anatomical Collection Method Collection Time Receive d Time (Source) Location / / Volume Laterality Blood 07/15/2022 7:41 AM 2 7:49 CDT AM CDT Reece Suresh MEDICAL CARE ADMINISTRATOR LAB BLOOD ORDERABLES Performing Organization Address City/[facility] Phon e Saul [place], [place] [id number] [place] [address] Aspartate Aminotransferase (07/15/2022 7:41 AM CDT) athologist Signature AST 27 <=40 U/L [place] Comment: Testing performed at [facility], [address] [place] [phone] Specimen Anatomical Collection Method Collection Time Receive d Time (Source) Location / / Volume Laterality Blood 07/15/2022 7:41 AM 2 7:49 CDT AM CDT Reece Suresh MEDICAL CARE ADMINISTRATOR LAB BLOOD ORDERABLES Performing Organization Address City/[facility]/[place] [address] [place] [address] Total Protein (07/15/2022 7:41 AM CDT) athologist Signature Total Protein 7.2 6.4 - 8.3 [place] g/dL Comment: Testing performed at [facility], [address] [place] [id number] Specimen Anatomical Collection Method Collection Time Receive d Time (Source) Location / / Volume Laterality Blood 07/15/2022 7:41 AM 2 7:49 CDT AM CDT Reece Suresh MEDICAL CARE ADMINISTRATOR LAB BLOOD ORDERABLES Performing Organization Address City/State/[place] [address] [place] [address] Alkaline Phosphatase (07/15/2022 7:41 AM CDT) athologist [facility] Alk Phos 62 40 - 129 U/L [place] Comment: Testing performed at [facility], [address] [place] [id number] Specimen Anatomical Collection Method Collection Time Receive d Time (Source) Location / / Volume Laterality Blood 07/15/2022 7:41 AM 2 7:49 CDT AM CDT Reece Suresh [facility] LAB BLOOD ORDERABLES Performing Organization Address City/State/ZIP Code Phon e Number [place], [place] [phone] [place] [address] LDH (07/15/2022 7:41 AM CDT) athologist [facility] LDH 179 135 - 225 [place] U/L Comment: Results greater than 1651 U/L may not be reliable due to matrix effect with extended dilution as it exceeds the web solutions architect's recommended limit. Caution should be exercised when interpreting such values and done in conjunction with clinical context. Testing performed at [facility], [address] [place] [phone] Specimen Anatomical Collection Method Collection Time Receive d Time (Source) Location / / Volume Laterality Blood 07/15/2022 7:41 AM 2 7:49 CDT AM CDT Reece Suresh [facility] LAB BLOOD ORDERABLES Performing Organization Address City/State/[place] [address] [place] [address] (ABNORMAL) Glucose Level (07/15/2022 7:41 AM CDT) [facility] Gl[facility] Level 120 (H) 70 - 99 [place] mg/dL Comment: Effective 06/24/16, the glucose reference intervals have been updated based on [employer] guidelines (Standards of Medical Care in Diabetes 2016. Diabetes Care 2016; 39: S13-S22). Fasting blood glucose: Normal: 70-99 mg/dL Impaired fasting glucose (increased risk for diabetes or pre-diabetes): 100- 125 mg/dL Diabetes mellitus: >/=126 mg/dL Random blood glucose: Normal: 70-199 mg/dL Note: Random glucose >100 mg/dL is assoc iated with increased risk for diabetes Testing performed at [facility], [address] [place] [address] Specimen Anatomical Collection Method Collection Time Receive d Time (Source) Location / / Volume Laterality Blood 07/15/2022 7:41 AM 2 7:49 CDT AM CDT Reece Suresh MEDICAL CARE ADMINISTRATOR LAB BLOOD ORDERABLES Performing Organization Address City/State/ZIP Code Phon e Number [address] (ABNORMAL) Calcium Level (07/15/2022 7:41 AM CDT) P athologist Signature Calcium Lvl 10.3 (H) 8.4 - 10.2 [place] mg/dL Comment: Testing performed at [facility], [address] [place] [address] Specimen Anatomical Collection Method Collection Time Receive d Time (Source) Location / / Volume Laterality Blood 07/15/2022 7:41 AM 2 7:49 CDT AM CDT Reece Suresh MEDICAL CARE ADMINISTRATOR LAB BLOOD ORDERABLES Performing Organization Address City/[facility]/ZIP Code Phon e Number [place], [place] [phone] [place] [address] Albumin Level (07/15/2022 7:41 AM CDT) P athologist Signature Albumin Lvl 4.4 3.5 - 5.2 [place] gm/dL Comment: Testing performed at [facility], [address] [place] [phone] Specimen Anatomical Collection Method Collection Time Receive d Time (Source) Location / / Volume Laterality Blood 07/15/2022 7:41 AM 2 7:49 CDT AM CDT Reece Suresh MEDICAL CARE ADMINISTRATOR LAB BLOOD ORDERABLES Performing Organization Address City/State/ZIP Code Phon e Number [address] Electrolyte Panel (07/15/2022 7:41 AM CDT) P athologist Signature Sodium Lvl 139 136 - 145 [place] mEq/L Comment: Testing performed at [facility], [address] [place] [phone] Potassium Lvl 4.4 3.5 - 5.1 mEq/L [facility] Comment: Testing performed at [facility], [address] [place] [address] Chloride 100 98 - 107 mEq/L [place] Comment: Testing performed at [facility], [address] [place] [address] CO2 29 22 - 29 mEq/L [place] Comment: Testing performed at [facility], [address] [place] [address] Anion Gap 10 4 - 14 mEq/L [place] Comment: Testing performed at [facility], [address] [place] [address] Specimen Anatomical Collection Method Collection Time Receive d Time (Source) Location / / Volume Laterality Blood 07/15/2022 7:41 AM 7:49 CDT AM CDT Reece MENESES LAB BLOOD ORDERABLES Performing Organization Address City/State/ZIP Code Phon e Number [place], [place] [phone] [place] [address] after 08/21/2021 Insurance Payer Benefit Plan / Subscriber ID Effective Dates Phone Addre ss Type Group [facility] [id number] 2022-[place]en [address] [facility] [place] [address] Advance Directives Code Status Date Activated Date Inactivated Comments Full Code 01/31/2016 1:21 PM 02/04/2016 3:54 PM Care Teams Recreational Vehicle Repairer Relationship Specialty Start Date End Date Angelo Toscano MD PCP - General 01/29/[address] [place] [id number] Angelo Toscano MD Physician 02/05/16 [facility] [place] [address]
--- OUTSIDE RECORDS SUMMARY | 2022-08-21 08:06 | XMS REPORT | Continuity of Care Document ---
:[address] [facility] t Address [address] [place] [address] Care Team Providers Name Role Phone [phone] Primary Care Physician Unavailable PRAVEENA VELA Attending Clinician Unavailable Curtis Jackson Attending Clinician CURTIS RIVERO Attending Clinician Unavailable Luisito Attending Clinician Unavailable Pramod Colin Attending Clinician [phone] MAURA PANDYA Attending Clinician Unavailable Maura Pandya MD Attending Clinician Doctor Unassigned, [place] Attending Clinician Unavailable BLAISE BRYANT Attending Clinician Unavailable Only, Ang Db Test Attending Clinician Unavailable Blaise Bryant MD Attending Clinician Gabby Collazo RN Attending Clinician Unavailable Renetta Arroyo Attending Clinician RENETTA VYAS Attending Clinician Unavailable RICK VELIZ Attending Clinician Unavailable Lab, Adc Fam Pob I Attending Clinician Unavailable Praveena Shu Attending Clinician SANDRA SEN Attending Clinician Unavailable CHRISTOPHER DIEHL Attending Clinician Unavailable CURTIS BRO IV Attending Clinician Unavailable Luisito Admitting Clinician Unavailable MAURA PANDYA Admitting Clinician Unavailable Payers Payer Name Policy Type Policy Number Effective Date Expiration Date S ource [place] POS [id number] 2020 00:00:00 [employer]ET[employer] HMO [id number] 2018 2020 00:00:00 00:00:00 [facility] [id number] 2022 00:00:00 [place] [id number] 2021 [place]PPO[place] 00:[place]:00 [place] [id number] 2020 00:00:00 Problems Condition Condition Condition Status Onset Resolution Last Treating Co mments Source Name Details Category Date Date Treatment Clinician Date Malignant Malignant Disease Active Uni vers tumor of tumor of 7-21 ity of kidney kidney 00:00: [place] 00 MD [facility] Renal mass Renal mass Disease Active Overview : Univers 3-04 Formattin ity of 00:00: g of this 00 note MD might be Luis Enrique cervantes n from the Cancer original. Center Pt. Admitted for Right REnal Mass; and is now s/p Right Partial Nephrecto my Diverticul Diverticul Disease Active U nivers itis itis 2 ity of 00:00: [place] 00 MD [facility] Allergies, Adverse Reactions, Alerts Allergy Allergy Status Severity Reaction(s) Onset Inactive Treating Comm ents Source Name Type Date Date Clinician NO KNOWN Drug Active Univers ALLERGIE Class ity of S [facility] Social History Social Habit Start Date Stop Date Quantity Comments Source Exposure to Not sure [facility] SARS-CoV-2 (event) [facility] Alcohol intake 2020-06-12 2020-06-12 Current University of 00:00:00 00:00:00 non-drinker of [facility] (finding) Cigarettes smoked 2016-02-01 2016-02-01 Univers ity of current (pack per 00:00:00 00:00:00 Negrita Kramer ) - Reported Cancer Ce nter Tobacco use and 2016-02-01 2016-02-01 Former smokeless Uni versity of exposure 00:00:00 00:00:00 tobacco user [facility] History of tobacco 2015-01-03 User of Univer sity of use 00:00:00 smokeless [facility]ita gibbs [facility] Sex Ass[birth year] At [birth year] Universit y of 00:00:00 00:00:00 Negrita Perez [facility] Smoking Status Start Date Stop Date Source Unknown if ever smoked [facility] Ex-smoker 2016-02-01 00:00:00 2016-02-01 00:00:00 [facility] Medications Ordered Filled Start Stop Current Ordering Indication Dosage Frequency Signature Comments Components Source Medication Medication Date Date Medication? Clinician (SIG) Name Name atorvastati Yes 10mg Take 10 mg Univers n (LIPITOR) 8-17 by mouth ity of 10 mg 10:20: daily. Negrita tablet 16 MD Luis Enrique power [facility] aspirin 81 Yes 81mg Take 81 mg U nivers mg EC 8-17 by mouth ity of tablet 10:20: daily. [place] 16 MD Luis Enrique power [facility] co-enzyme Yes 100mg Take 100 Uni vers Q-10 30 mg 8-17 mg by ity of capsule 10:20: mouth Negrita 16 daily. MD Luis Enrique power [facility] fish Yes 2g Take 2 g Univers oil-omega-3 -17 by mouth ity of fatty acids 10:20: [place]. [place] 300-1,000 16 mg capsule [facility] DULoxetine Yes duloxetine U nivers (CYMBALTA) 8-17 30 mg ity of 30 mg 10:20: capsule,de [place] capsule 16 layed MD karl Dudley TAKE 1 n CAPSULE BY Cancer MOUTH Center DAILY baclofen Yes baclofen Unive rs (LIORESAL) 8-17 10 mg ity of 10 mg 10:20: tablet [place] tablet 16 MD Luis Enrique power [facility] valsartan-h 2022- No 1{tbl} Take 1 U nivers ydrochlorot 8-17 08-17 tablet by it y of hiazide 08:18: 00:00 mouth Negrita (DIOVAN-HCT 10 :00 daily. ) 160 Anderso mg-12.5 mg n per tablet [facility] [place] amoxicillin 2022- No 1{tbl} 1 tablet, Univers -clavulanat 3-18 03-18 Oral, ity of e 02:45: 02:11 ONCE, 1 Negrita (AUGMENTIN) 00 :00 dose, On Medi craig 875-125 mg [place] [facility] per tablet 02/12/22 at 1 tablet 2145, Routine
Reason for Anti-Infec tive: Documented Infection< br>Documen tiago Infection Site: Abdominal< br>Duratio n of Therapy: Other (see Comments) iopamidol 2021- No [id number] 120mL 120 mL, Univers (ISOVUE -02-12 Intravenou ity o f 370-500 mL) 23:55: 23:55 s, ONCE, 1 [place] injection 00 :00 dose, On Medica l 120 mL [place] [facility] 02/12/22 at 1915, Routine atorvastati Yes 10mg Take 10 mg Univers n 10 mg 3-17 by mouth ity of tablet 17:12: at [place] [address] bedtime. Medical Branch traZODone Yes 100mg Take 100 Uni vers 100 mg 3-17 mg by ity of tablet 17:12: mouth at [place] [address] bedtime. Medical Branch DULoxetine Yes Take by Univ ers 30 mg CDRS 3-17 mouth ity of 17:12: daily. [place] 57 Medical Branch aspirin 0 Yes 81mg Take 81 mg Univ ers (ASPIR-81) -17 by mouth ity o f 81 mg EC 17:12: daily. [place] tablet 57 Medical Branch losartan-hy Yes 1{tbl} Take 1 Un peña drochloroth 3-17 tablet by ity of iazide 17:12: mouth [place] 100-25 mg 57 daily. Medical per tablet Branch losartan 50 0 2021- No 50mg Take 50 mg Univers mg tablet 3-17 by mouth ity o f 17:12: 00:00 daily. [place] 57 :00 Medical Branch amoxicillin Yes [id number] 1{tbl} Take 1 Univers -clavulanat 3-17 tablet by ity of e 875-125 00:00: mouth [place] mg per 00 every 12 Medical tablet (twelve) Branch hours. ondansetron Yes [id number] 4mg Take 1 Univers (ZOFRAN) 4 3-17 tablet by ity of mg tablet 00:00: mouth [place] 00 every 8 Medical (eight) Branch hours as needed for Nausea and Vomiting (N/V). traMADoL Yes [id number] 50mg Take 1 Univers (ULTRAM) 50 3-17 tablet by ity of mg tablet 00:00: mouth [place] 00 every 6 Medical (six) Branch hours as needed for Pain (scale 7-10). Indication s: acute pain atorvastati Yes 10mg Take 10 mg Univers n (LIPITOR) 8-11 by mouth ity of 10 mg 13:52: daily. [place] tablet 11 MD Luis Enrique power [facility] aspirin 81 Yes 81mg Take 81 mg U nivers mg EC 8-11 by mouth ity of tablet 13:52: daily. 11 MD Luis Enrique power [facility] co-enzyme Yes 100mg Take 100 Uni vers Q-10 30 mg 8-11 mg by ity of capsule 13:52: mouth [place] 11 daily. MD Luis Enrique power [facility] fish Yes 2g Take 2 g Univers oil-omega-3 -11 by mouth ity of fatty acids 13:52: daily. [place] 300-1,000 11 MD mg capsule [facility] losartan-hy Yes 100{tbl 100 Uni vers drochloroth 5-29 } tablets. ity of iazide 00:00: [place] (HYZAAR) 00 MD 100-12.5 mg Anderso per tablet [facility] losartan-hy Yes 100{tbl 100 Uni vers drochloroth 5-29 } tablets. ity of iazide 00:00: [place] (HYZAAR) 00 100-12.5 mg Anderso per tablet [facility] valsartan-h 2019-11 Yes 1{tbl} Take 1 Un peña ydrochlorot 0-30 tablet by ity of hiazide 23:04: mouth [place] (DIOVAN-HCT 25 daily. ) 160 Anderso mg-12.5 mg n per tablet [facility] traZODone Yes 50mg Take 50 mg Un peña (DESYREL) 7-09 by mouth ity of 50 mg 00:00: nightly as [place] tablet 00 needed. MD Luis Enrique power [facility] traZODone Yes 50mg Take 50 mg Un peña (DESYREL) 06-06 by mouth ity of 50 mg 00:00: nightly as [place] tablet 00 needed. MD Luis Enrique power [facility] Center Immunizations Ordered Filled Immunization Date Status Comments [facility] e Immunization Name Name SARS-COV-2 COVID-19 2021-02-21 Completed Unive rsity of PFIZER VACCINE 00:00:00 [facility] SARS-COV-2 COVID-19 2021-02-21 Completed Unive rsity of PFIZER VACCINE 00:00:00 [facility] SARS-COV-2 COVID-19 2021-02-21 Completed Unive rsity of PFIZER VACCINE 00:00:00 [facility] SARS-COV-2 COVID-19 2021-02-21 Completed Unive rsity of PFIZER VACCINE 00:00:00 [facility] SARS-COV-2 COVID-19 2021-02-21 Completed Unive rsity of PFIZER VACCINE 00:00:00 [facility] SARS-COV-2 COVID-19 2021-02-21 Completed Unive rsity of PFIZER VACCINE 00:00:00 [facility] SARS-COV-2 COVID-19 2021-01-31 Completed Unive rsity of PFIZER VACCINE 00:00:00 [facility] SARS-COV-2 COVID-19 2021-01-31 Completed Unive rsity of PFIZER VACCINE 00:00:00 [facility] SARS-COV-2 COVID-19 2021-01-31 Completed Unive rsity of PFIZER VACCINE 00:00:00 [facility] SARS-COV-2 COVID-19 2021-01-31 Completed Unive rsity of PFIZER VACCINE 00:00:00 [facility] SARS-COV-2 COVID-19 2021-01-31 Completed Unive rsity of PFIZER VACCINE 00:00:00 [facility] SARS-COV-2 COVID-19 2021-01-31 Completed Unive rsity of PFIZER VACCINE 00:00:00 [facility] Influenza, 2018-08-24 Completed University of Quadriv[facility]:00:00 [facility] Vital Signs Vital Name Observation Time Observation Value Comments Source Systolic blood 2022-02-13 02:06:00 136 mm[Hg] Univer sity of pressure [facility] Diastolic blood 2022-02-13 02:06:00 72 mm[Hg] Unive rsity of pressure [facility] Heart rate 2022-02-13 02:06:00 75 /min Universi ty of [facility] Respiratory rate 2022-02-13 02:06:00 17 /min Univ ersity of [facility] Oxygen saturation in 2022-02-13 02:06:00 97 /min University of Arterial blood by [place] [facility] Pulse oximetry Branch Body temperature 2022-02-12 22:01:00 36.67 Sejal Univ ersity of [facility] Body weight 2022-02-12 22:01:00 122.471 kg Universi ty of [facility] Systolic blood 2022-07-15 15:17:16 124 mm[Hg] Univer sity of pressure [facility] Diastolic blood 2022-07-15 15:17:16 76 mm[Hg] Unive rsity of pressure [facility] Heart rate 2022-07-15 15:17:16 74 /min Universi ty of [facility] Body temperature 2022-07-15 15:17:16 36.72 Sejal Univ ersity of [facility]ita [facility] Respiratory rate 2022-07-15 15:17:16 18 /min Univ ersity of [facility] Body weight 2022-07-15 15:17:16 120.6 kg Universi ty of [facility] BMI 2022-07-15 15:17:16 37.10 kg/m2 Universi ty of [facility] Oxygen saturation in 2022-07-15 15:17:16 96 /min University of Arterial blood by Negrita moreno Pulse oximetry Cancer Center Systolic blood 2021-07-09 18:44:11 124 mm[Hg] Univer sity of pressure [facility] Diastolic blood 2021-07-09 18:44:11 71 mm[Hg] Unive rsity of pressure [facility] Heart rate 2021-07-09 18:44:11 85 /min Universi ty of [facility] Body temperature 2021-07-09 18:44:11 36.72 Sejal Univ ersity of [facility] Respiratory rate 2021-07-09 18:44:11 20 /min [facility] MD [facility] Body weight 2021-07-09 18:44:11 121.7 kg [facility] MD [facility] on [facility] BMI 2021-07-09 18:44:11 37.44 kg/m2 [facility] MD Salmeron on [facility] Oxygen saturation in 2021-07-09 18:44:11 97 /min University Arterial blood by Negrita moreno Pulse oximetry Cancer Center Procedures Procedure Date / Time Performing Clinician Source Performed CT LUNG SCREENING 2022-07-15 14:44:00 Josefa [facility] CT ABDOMEN W CONTRAST 2022-07-15 14:44:00 Josefa [facility] [place] [facility] XR CHEST 2 VW 2022-07-15 13:55:06 Josefa [facility] COMPLETE BLOOD COUNT W/ 2022-07-15 12:41:00 Josefa [facility] DIFFERENTIAL [facility] LACTATE DEHYDROGENASE 2022-07-15 12:41:00 Josefa [facility] [place] [facility] COMPREHENSIVE METABOLIC 2022-07-15 12:41:00 Josefa [facility] PANEL [facility] Results CBC 2022-07-15 12:41:00 Josefa [facility] MANUAL DIFFERENTIAL 2022-07-15 12:41:00 Josefa [facility] GLUCOSE LEVEL 2022-07-15 12:41:00 Josefa [facility] BLOOD UREA NITROGEN 2022-07-15 12:41:00 Josefa [facility] ELECTROLYTE PANEL 2022-07-15 12:41:00 Josefa [facility] SERUM CREATININE 2022-07-15 12:41:00 Josefa [facility] .GLOMERULAR FILTRATION 2022-07-15 12:41:00 Josefa [facility] RATE [facility] CALCIUM LEVEL TOTAL 2022-07-15 12:41:00 Curtis Rivero [facility] ALBUMIN LEVEL 2022-07-15 12:41:00 Curtis Rivero [facility] ALKALINE PHOSPHATASE 2022-07-15 12:41:[address] [facility] ALANINE AMINOTRANSFERASE 2022-07-15 12:41:00 [facility] ASPARTATE AMINOTRANSFERASE 2022-07-15 12:41:00 Curtis Rivero [facility] TOTAL PROTEIN 2022-07-15 12:41:00 Curtis Rivero [facility] FRACTIONATED BILIRUBIN 2022-07-15 12:41:00 Curtis Rivero [facility] CT ABDOMEN PELVIS W 2022-02-13 00:00:58 Maura Pandya [facility] CONTRAST Medical Branch PROTHROMBIN TIME / INR 2022-02-12 22:38:00 Maura Pandya [facility] ACTIVATED PARTIAL THRMPLAS 2022-02-12 22:38:00 Maura Pandya [facility] DUNG [facility] LIPASE 2022-02-12 22:38:00 Mumtaz Maura [facility] COMP. METABOLIC PANEL 2022-02-12 22:38:00 Maura Pandya [facility] ([id number]) Medical [place] CBC WITH DIFF 2022-02-12 22:38:00 Maura Pandya [facility] URINALYSIS 2022-02-12 22:20:00 Maura Pandya [facility] NOTICE OF PRIVACY 2022-02-12 21:58:31 Doctor Luis Armando, [facility] PRACTICES [place] [facility] [place] CONSENT/REFUSAL FOR 2022-02-12 21:56:26 Doctor Luis Armando [facility] DIAGNOSIS AND TREATMENT [place] [facility] [place] CT ABDOMEN W CONTRAST 2021-07-09 16:04:11 Curtis Rivero [facility] XR CHEST 2 VW 2021-07-09 14:34:00 Curtis Rivero [facility] TOTAL PROTEIN 2021-07-09 13:48:00 Osai, [facility] FRACTIONATED BILIRUBIN 2021-07-09 13:48:00 Osaamna, [facility] COMPLETE BLOOD COUNT W/ 2021-07-09 13:48:00 Osai, [facility] DIFFERENTIAL [facility] LACTATE DEHYDROGENASE 2021-07-09 13:48:00 Osai, Curtis [facility] COMPREHENSIVE METABOLIC 2021-07-09 13:48:00 Osai, [facility] PANEL [facility] Results CBC 2021-07-09 13:48:00 Osai, [facility] MANUAL DIFFERENTIAL 2021-07-09 13:48:00 Osai, [facility] GLUCOSE LEVEL 2021-07-09 13:48:00 Osaamna, [facility] BLOOD UREA NITROGEN 2021-07-09 13:48:00 Osai, [facility] ELECTROLYTE PANEL 2021-07-09 13:48:00 Osai, [facility] SERUM CREATININE 2021-07-09 13:48:00 Osaamna, [facility] .GLOMERULAR FILTRATION 2021-07-09 13:48:00 Josefa, Curtis [facility] RATE [facility] CALCIUM LEVEL TOTAL 2021-07-09 13:48:00 Osaamna [facility] ALBUMIN LEVEL 2021-07-09 13:48:00 Osaamna [facility] ALKALINE PHOSPHATASE 2021-07-09 13:48:[address] [facility] ALANINE AMINOTRANSFERASE 2021-07-09 13:48:00 OsaCurtis woo [facility] ASPARTATE AMINOTRANSFERASE 2021-07-09 13:48:00 [facility] Plan of Care Planned Activity Planned Date Details Comments Source Future Scheduled 2022-07-28 COVID-19 Vaccination Uni versity of [place] Test 16:16:10 (3 - Booster for MD [facility] Pfizer series) [code Center = COVID-19 Vaccination (3 - Booster for Pfizer series)] Future Scheduled 2022 COVID-19 Vaccination Uni versity of [place] Test 11:16:34 (3 - Booster for MD [facility] Pfizer series) [code Center = COVID-19 Vaccination (3 - Booster for Pfizer series)] Encounters Start End Encounter Admission Attending Care Care Encounter Source Date/Time Date/Time Type Type Clinicians Facility Department ID 2020-06-13 Outpatient VELA, MDA MDA [id number] 13:43:41 PRAVEENA power 2022-07-15 2022-07-15 Office Osai, 1.2.840.1 [id number] Univers 11:40:00 12:00:00 Visit Curtis [id number] ity of 3.412.2.7 [place] .3.119084 MD Diehl [facility] tono [facility] 2022-07-15 2022-07-15 Ancillary Osai, 1.2.840.1 [id number] Univers 10:45:00 11:00:00 Procedure Curtis [id number] it y of 3.412.2.7 [place] .3.184206 [facility] 2022-07-15 2022-07-15 Ancillary Osai, 1.2.840.1 [id number] Univers 08:05:00 10:30:00 Procedure Curtis 22246.1.1 it y of 3.412.2.7 [place] .3.404139 MD Diehl [facility] 2022-07-15 2022-07-15 Outpatient EL OSAI, MDA MDA [id number] 09:45:21 09:45:21 CURTIS power 2022-07-15 2022-07-15 Outpatient EL OSAI, MDA MDA [id number] 07:49:22 07:49:22 CURTIS power 2022-07-15 2022-07-15 Outpatient EL OSAI, MDA MDA [id number] 07:49:10 07:49:10 CURTIS power 2022-07-152022-07-15 Outpatient DANNY RIVERO [facility] [id number] 07:41:14 07:43:24 CURTIS Jarontacos power 2022-07-15 2022-07-15 Travel 1.2.840.1 [id number] Univers 00:00:00 00:00:00 [id number] 350.1.13.41 ity of 3.412.2.7 2.[place].7.3.698 [place] .3.372158 084.8 MD .8 Luis En[facility] 2022-06-03 2022-06-03 Outpatient FOG_Taba_Ho AOSM AOSM [id number] Khushi 04:18:00 04:18:00 Yuliya [id number] [facility] 2022-06-03 2022-06-03 Outpatient Taba, AOSM AOSM [id number] 0-f 00:00:00 00:00:00 Pramod Bob [id number] 2022-05-28 2022-05-28 Outpatient FOG_Taba_Ho AOSM AOSM [id number] [id number] Khushi 05:22:00 05:22:00 Yuliya [id number] [facility] 2022-05-27 2022-05-27 Outpatient FOG_Taba_Ho AOSM AOSM [id number] [id number] Khushi 04:41:00 04:41:00 Yuliya [id number] [facility] 2022-02-12 2022-02-12 Emergency X MUMTAZ [facility] ERT [id number] Univers 17:12:00 21:14:00 MAURA callaway of [facility] 2022-02-12 2022-02-12 Emergency Mumtaz MNLUDMILA [id number] Univers 17:12:00 21:14:00 Maura SERRANO 350.1.13.10 i TressaBANNER 4.2.7.2.686 [facility] [id number] [address] 2022-02-12 2022-02-12 Orders Doctor DIANA 1.2.840.114 [id number] Univers 00:00:00 00:00:00 Only Unassigned, RAMON 350.1.13.10 ity of [place] [facility] 4.2.7.2.686 Pedro as [id number] [facility] 009 [place] 2021-10-09 2021-10-09 Outpatient R MANNY [facility] [id number] Univers 17:15:00 17:34:19 BLAISE ity [facility] 2021-10-09 2021-10-09 Laboratory Only, Ang Db Test [facility] 1.2.8 40.114 [id number] Univers 17:16:29 17:31:29 Only Manny, Blaise HEALTH 350.1.13.10 ity of [place] 4.2.7.2.686 Pedro as RAFAT?BLEA [id number] [address] MEDICAL OFFICE [facility] 2021-10-09 2021-10-09 Outpatient R [facility] [id number] Univers 17:15:00 17:15:00 [id number] ity [facility] 2021-07-31 2021-07-31 Letter DIANA Collazo 1.2.840.114 [id number] Univers 00:00:00 00:00:00 (Out) Gabby Brothers RAMON 350.1.13.10 it y of [facility] 4.2.7.2.686 Pedro as [id number] [address] 2021-07-30 2021-07-30 Laboratory Only, Ang Db Test [facility] 1.2.8 40.114 [id number] Univers 10:49:17 11:04:17 Only Renetta [facility] 350.1.13.10 ity of [place] 4.2.7.2.686 Pedro as Rafat?Blea [id number] [address] Medical Office Building 2021-07-30 2021-07-30 Outpatient [facility] [id number] Univers 10:40:00 10:40:00 [id number] ity [facility] 2021-07-30 2021-07-30 [facility] [id number] Univers 10:40:00 10:40:00 RENETTA ity [facility] 2021-07-09 2021-07-09 Consult EL Osai, 1.2.840.1 [id number] Univers 13:40:00 15:45:09 Curtis 43201.1.1 ity of 3.412.2.7 [place] .3.617366 MD Diehl [facility] 2021-07-09 2021-07-09 Office EL Osai, 1.2.840.1 [id number] Univers 13:40:00 14:00:00 Visit Curtis 67540.1.1 ity of 3.412.2.7 [place] .3.129633 MD Diehl [facility] 2021-07-09 2021-07-09 Ancillary EL Osai, 1.2.840.1 [id number] Univers 09:45:00 12:10:00 Procedure Curtis 05338.1.1 it y of 3.412.2.7 [place] .3.558947 MD Diehl [facility] 2021-07-09 2021-07-09 Ancillary EL Osai, 1.2.840.1 [id number] Univers 09:30:00 09:45:00 Procedure Curtis 54980.1.1 it y of 3.412.2.7 [place] .3.077182 MD Diehl [facility] 2021-07-09 2021-07-09 Outpatient EL OSAI, MDA MDA [id number] 08:24:46 08:44:32 CURTIS power 2021-07-09 2021-07-09 Orders Osai, 1.2.840.1 [id number] Univers 00:00:00 00:00:00 Only Curtis 66850.1.1 ity of 3.412.2.7 [place] .3.917856 MD Diehl [facility] 2021-07-09 2021-07-09 Travel 1.2.840.1 [id number] [id number] Univers 00:00:00 00:00:00 17125.1.1 350.1.13.41 ity of 3.412.2.7 2.2.7.3.698 [place] .3.677485 084.8 .8 Luis Enrique [facility] 2021-02-21 2021-02-21 Outpatient R KEREN, [facility] [id number] Univers 10:00:00 10:00:00 RICK ity [facility] 2021-01-31 2021-01-31 Outpatient [facility] [id number] Univers 10:00:00 10:00:00 [id number] ity [facility] 2021-01-31 2021-01-31 Outpatient R KEREN, [facility] [id number] Univers 10:00:00 10:00:00 RICK [facility] 2020-11-12 2020-11-12 Outpatient R [facility] [id number] Univers 10:20:00 10:20:00 ity [facility] 2020-11-12 2020-11-12 Laboratory Lab, [facility] Pob I [facility] 1.2. 840.114 [id number] Univers 09:46:23 10:06:23 Only Lyla, [employer] 350.1.13.10 ity of [place] 4.2.7.2.686 Pedro as Professio [id number] [address] Office Building One 2020-11-12 2020-11-12 Letter Doctor DIANA 1.2.840.114 [id number] Univers 00:00:00 00:00:00 (Out) Unassigned, RAMON 350.1.13.10 [facility] [place] [facility] [id number] Pedro as [phone] [address] 2020-06-18 2020-06-18 Outpatient EL JOSEFA MDA MDA [id number] 08:13:54 09:07:05 CURTIS power 2020-06-12 2020-06-12 Outpatient DANNY SEN MDA MDA [id number] 06:37:50 23:59:00 SANDRA power 2020-06-12 2020-06-12 Outpatient DANNY SEN MDA MDA [id number] 08:34:18 08:34:18 SANDRA power 2020-06-12 2020-06-12 Outpatient CHRISTOPHER PASTOR MDA [facility] [id number] 08:19:40 08:19:40 Jaron o n 2020-06-12 2020-06-12 Outpatient DANNY SEN MDA MDA [id number] 06:50:59 06:50:59 SANDRA power 2020-04-02 2020-04-02 Outpatient CHRISTOPHER PASTOR MDA MDA [id number] 00:00:00 00:00:00 Jaron o n 2019-03-21 2019-03-21 Outpatient DANNY BRO IV, MDA MDA [id number] 00:00:00 00:00:00 CURTIS power 2019-03-19 2019-03-19 Outpatient CHRISTOPHER PASTOR MDA [facility] [id number] 10:25:00 23:59:00 Jaron power Results Test Description Test Time Test Comments Results Result Comments Source COMP. METABOLIC PANEL (04669) 2022-02-12 23:02:05 Test Item Value Reference Range Interpretation Comme nts NA (test code = 7976123721) 138 mmol/L 135-145 K (test code = 2738817420) 3.9 mmol/L 3.5-5.0 CL (test code = 6436976517) 100 mmol/L 98-108 CO2 TOTAL (test code = 4514371882) 28 mmol/L 23-31 AGAP (test code = 5042921357) 2-16 BUN (test code = 7486415933) 16 mg/dL 7-23 GLUCOSE (test code = 6668478245) 117 mg/dL 70-110 H CREATININE (test code = 0.93 mg/dL 0.60-1.25 1230352130) TOTAL BILI (test code = 0.7 mg/dL 0.1-1.4 7217180541) CALCIUM (test code = 6347263532) 8.8 mg/dL 8.6-10.6 T PROTEIN (test code = 1752421090) 6.8 g/dL 6.3-8.2 ALBUMIN (test code = 1454954825) 4.5 g/dL 3.5-5.0 ALK PHOS (test code = 5374156130) 60 U/L 34-122 ALTv (test code = 1742-6) 25 U/L 5-50 AST(SGOT) (test code = 2839481106) 22 U/L 13-40 eGFR (test code = 3056563394) mL/min/1.73m2 GARETH (test code = GARETH) Association of Glomerular Filtration Rate (GFR) and Staging of Kidney Disease* + +-------- + ------+| GFR (mL/min/1.73 m2) ?| With Kidney Damage ?| ?Without Kidney Damage+ +-- + +| ?>90 ?| ?Stage one ?| ? Normal ?+ +------- + -------+| ?60-89 ?| ?Stage two ?| ? Decreased GFR ? + +-------- + ------+| ?30-59 ?| ?Stage three ?| ? Stage three ? + +-------- + ------+| ?15-29 ?| ?Stage four ? | ? Stage four ?+ +------- + -------+| ?<15 (or dialysis) ? ?| ?Stage five ? | ? Stage five ?+ +------- + -------+ *Each stage assumes the associated GFR level has been in effect for at least three months. ?Stages 1 to 5, with or without kidney disease, indicate chronic kidney disease. Notes: Determination of stages one and two (with eGFR >59mL/min/1.73 m2) requires estimation of kidney damage for at least three months as defined by structural or functional abnormalities of the kidney, manifested by either:Pathological abnormalities or Markers of kidney damage (including abnormalities in the composition of the blood or urine or abnormalities in imaging tests). Lab Interpretation (test code = Abnormal 18021-9) [facility]05 Test Item Value Reference Range Interpretation Comments LIPASE (test code = 0552471084) 134 U/L 0-220 Lab Interpretation (test code = Normal 14636-7) [facility]ACT[facility] THRMPLAS [id number] 23:00:42 Test Item Value Reference Range Interpretation Comments APTT Patient (test See_Comment [Automat ed code = 3173-2) message] The system which generated this result transmitted reference range : 23 - 38 Seconds . The reference range was not used to interpr et this result as normal/abnormal . GARETH (test code = GARETH) The [facility] patient population mean normal value for aPTT is 30 seconds. Lab Interpretation Normal (test code = 64252-8) [facility] TIME / [id number] 22:58:41 Test Item Value Reference Range Interpretation Comments PROTIME PATIENT (test See_Comment [Auto mated message] code = 5964-2) The system wh ich generated this result transmitted ref erence range: 12.0 - 1 4.7 Seconds. The re ference range was not u sed to interpret this result as normal/abnor mal. INR (test code = 6301-6) Nor mal INR <1.1; Warfarin Therap eutic range 2.0 to 3. 0 or 2.5 to 3.5, dep ending upon the indica tions. Lab Interpretation (test Normal code = 12878-7) [facility] SystemCBC WITH [id number] 22:53:22 Test Item Value Reference Range Interpretation Comments WBC (test code = See_Comment [Automated 9590-2) message] The sy stem which generated this result transmitted reference range : 4.20 - 10.70 10*3/?L. The reference range was not used to interpret this result as normal/abnormal . RBC (test code = See_Comment [Automated 649-8) message] The sy stem which generated this result transmitted reference range : 4.26 - 5.52 10*6/?L. The reference range was not used to interpret this result as normal/abnormal . HGB (test code = 13.0 g/dL 12.2-16.4 718-7) HCT (test code = 38.5 % 38.4-49.3 4544-3) MCV (test code = 89.1 fL 81.7-95.6 787-2) MCH (test code = 30.1 pg 26.1-32.7 785-6) MCHC (test code = 33.8 g/dL 31.2-35.0 786-4) RDW-SD (test code = 38.7 fL 38.5-51.6 15127-1) RDW-CV (test code = 11.9 % 12.1-15.4 L 788-0) PLT (test code = See_Comment [Automated 637-3) message] The sy stem which generated this result transmitted reference range : 150 - 328 10*3/ ?L. The reference r daisy was not used to interpret this result as normal/abnormal . MPV (test code = 10.2 fL 9.8-13.0 34469-2) NRBC/100 WBC (test See_Comment [Automat ed code = 9464870984) message] The system which generated this result transmitted reference range : 0.0 - 10.0 /100 WBCs. The refer ence range was not u sed to interpret th is result as normal/abnormal . NRBC x10^3 (test code <0.01 See_Comment [Auto mated = 9250286502) message] The s ystem which generated this result transmitted reference range : 10*3/?L. The reference range was not used to interpret this result as normal/abnormal . GRAN MAT (NEUT) % 74.9 % (test code = 770-8) IMM GRAN % (test code 0.30 % = 9359922678) LYMPH % (test code = 13.2 % 736-9) MONO % (test code = 9.9 % 5905-5) EOS % (test code = 1.4 % 713-8) BASO % (test code = 0.3 % 706-2) GRAN MAT x10^3(ANC) 6.50 10*3/uL 1.99-6.95 (test code = 6304520650) IMM GRAN x10^3 (test 0.03 10*3/uL 0.00-0.06 code = 5448834731) LYMPH x10^3 (test code 1.15 10*3/uL 1.09-3.23 = 731-0) MONO x10^3 (test code 0.86 10*3/uL 0.36-1.02 = 742-7) EOS x10^3 (test code = 0.12 10*3/uL 0.06-0.53 711-2) BASO x10^3 (test code 0.03 10*3/uL 0.01-0.09 = 704-7) Lab Interpretation Abnormal (test code = 46429-0) [facility]"
[2022-08-21 08:53] LABS: Lymphocytes % 10.7 % (15.3-44.8); MPV 8.2 fL (7.6-11.3); RBC Red Blood Cell Count 4.24 M/uL (4.33-5.43)
[2022-08-21 08:59] LABS: Urine Blood Negative (Negative); Urine Glucose Negative (Negative); Urine Protein Negative (Negative)
[2022-08-21] MEDS ORDERED: MORPHINE 4 MG/ML SYR ONE (09:00)
[2022-08-21] MEDS ORDERED: ONDANSETRON 4 MG/2 ML VIAL ONE (09:00)
[2022-08-21 09:03] LABS: Albumin 3.6 g/dL (3.4-5.0); Bilirubin Total 0.4 mg/dL (0.2-1.0); Potassium 3.7 mmol/L (3.5-5.1); Troponin High Sensitivity 6.3 pg/mL (<58.9)
--- NOTE | 2022-08-21 09:46 | RAD REPORT ---
EXAM DESCRIPTION: CT - Abdomen Pelvis W Contrast - 08/21/2022 9:31 am CLINICAL HISTORY: nausea flank pain COMPARISON: Abdomen Pelvis W Contrast dated 06/06/2022 TECHNIQUE: Biphasic, helical CT imaging of the abdomen and pelvis was performed following 100 ml non -ionic IV contrast. No oral contrast was administered. All CT scans are performed using dose optimization technique as appropriate and may include automated exposure control or mA/KV adjustment according to patient size. FINDINGS: No suspicious findings in the lung bases. The liver, spleen, and pancreas show no suspicious findings. Gallbladder and biliary tree are also wi thout suspicious finding. Symmetric renal function is seen with no hydronephrosis or suspicious renal mass. No pyelonephritis o r acute parenchymal process. Calcifications are present along the lateral capsule of the right kidney . No bladder abnormalities. No adrenal abnormalities. Stomach and small bowel show no suspicious findings. No appendicitis findings are present. No acute f indings of the right-side colon. Patient has a sal[place] diverticulosis pattern. The distal 6 cm of the gela cending colon shows circumferential wall thickening with stranding and edema in the adjacent fat. No extraluminal air or abnormal fluid collection. Sigmoid and rectum portions of the colon show no acute findings. No pneumatosis. No other area of inflammatory stranding. No mass or bulky lymphadenopathy. Fat gilbert led inguinal hernias are present. There is a minimal fat only umbilical hernia. No suspicious bony findings. IMPRESSION: Mild acute diverticulitis in the distal most portion of the descending colon. No extraluminal air, abscess or other emergent complication.
--- NOTE | 2022-08-21 10:32 | ER ---
Nurse's Notes [facility] Name: Drake Claudio Age: 57 yrs Sex: Male : 1965 Arrival Date: 08/21/2022 Time: 08:07 Bed 10 Private MD: Diagnosis: Diverticulitis of intestine, part unspecified, without perforation or abscess without bleeding Presentation: 08/21 08:38 Chief complaint: Patient states: LLQ pain X 3-4 days, +nausea , hx of diverticulitis. iw Coronavirus screen: At this time, the client does not indicate any symptoms associated with coronavirus-19. Ebola Screen: Patient negative for fever greater than or equal to 101.5 degrees Fahrenheit, and additional compatible Ebola Virus Disease symptoms Patient denies exposure to infectious person. Patient denies travel to an Ebola-affected area in the 21 days before illness onset. No symptoms or risks identified at this time. Risk Assessment: Do you want to hurt yourself or someone else? Patient reports no desire to harm self or others. Onset of symptoms was August 18, 2022. 08:38 Method Of Arrival: Ambulatory iw 08:38 Acuity: JUSTINE 3 iw Historical: - Allergies: 08:39 No Known Allergies; iw - Home Meds: 08:39 atorvastatin 10 mg Oral tab 1 tab once daily [Active]; duloxetine 30 mg Oral cpDR 1 cap iw once daily [Active]; losartan-hydrochlorothiazide 100-12.5 mg Oral tab 1 tab once daily [Active]; trazodone 100 mg Oral tab 1 tab nightly [Active]; - PMHx: 08:39 Hypertensive disorder; Hypercholesterolemia; iw - Immunization history:: Adult Immunizations Adult Immunizations up to date. - Social history:: Smoking status: Patient denies any tobacco usage or history of. Screenin:19 Abuse screen: Denies threats or abuse. Denies injuries from another. Nutritional iw screening: No deficits noted. Tuberculosis screening: No symptoms or risk factors identified. Fall Risk IV access (20 points). Assessment: 09:19 Reassessment: Patient appears in no apparent distress at this time. Patient and/or iw family updated on plan of care and expected duration. Pain level reassessed. Patient is alert, oriented x 3, equal unlabored respirations, skin warm/dry/pink. 10:00 Reassessment: Patient and/or family updated on plan of care and expected duration. Pain bm7 level reassessed. Patient is alert, oriented x 3, equal unlabored respirations, skin warm/dry/pink. Vital Signs: 09:18 BP 117 / 87; Pulse 71; Resp 16; Temp 98; Pulse Ox 100% on R/A; Pain 4/10; iw ED Course: 08:07 Patient arrived in ED. rg4 08:16 [facility] Guthrie [facility] jl9 08:30 Initial lab(s) drawn, by me, sent to lab. Inserted saline lock: 20 gauge in left dh3 antecubital area, using aseptic technique. Blood collected. 08:38 Pamela Torres, RN is Primary Nurse. iw 08:39 Triage completed. iw 08:39 Arm band placed on. iw 08:59 Urine collected: clean catch specimen, clear. Patient maintains SpO2 saturation greater bm7 than 95% on room air. 09:33 Abdomen In Process Unspecified. EDMS 10:00 No apparent distress. Resting quietly. Awaiting lab results. bm7 10:00 Patient has correct armband on for positive identification. Placed in gown. Bed in low bm7 position. Call light in reach. Side rails up X 1. Client placed on continuous cardiac and pulse oximetry monitoring. NIBP monitoring applied. Warm blanket given. 10:33 Sahil Larose MD is Attending Physician. jl9 10:55 No provider procedures requiring assistance completed. intact, bleeding controlled, No bm7 redness/swelling at site. Pressure dressing applied. Administered Medications: 08:58 Drug: morphine 2 mg Route: IVP; Infused Over: 4 mins; Site: right antecubital; bm7 10:56 Follow up: Response: Pain is decreased bm7 08:59 Drug: Zofran (Ondansetron) 4 mg Route: IVP; Site: right antecubital; bm7 10:56 Follow up: Response: Nausea is decreased bm7 Medication: 10:00 VIS not applicable for this client. bm7 Outcome: 10:32 Discharge ordered by . jl9 10:55 Discharged to home ambulatory. bm7 10:55 Condition: improved 10:55 Discharge instructions given to patient, Instructed on discharge instructions, follow up and referral plans. medication usage, Demonstrated understanding of instructions, follow-up care, medications, Prescriptions given X 2. 10:56 Patient left the ED. bm7 Signatures: Dispatcher [employer] EDPamela Mondragon, RN Marbella Spence 4 Lilia Argueta 3 Areli Beal, TYLER RN Alexandr Garland9
--- NOTE | 2022-08-21 10:32 | EDPHYS ---
Physician Documentation [facility] Name: Drake Claudio Age: 57 yrs Sex: Male : 1965 Arrival Date: 08/21/2022 Time: 08:07 Bed 10 Private MD: ED Physician Sahil Larose HPI: 08/21 08:25 This 57 yrs old Male presents to ER via Unassigned with complaints of nausea, jl9 and intermittent LLQ abdominal pain. Patient has a history of diverticulosis. . 08:25 The patient presents to the emergency department with nausea, abdominal pain, of the jl9 left lower quadrant, described as crampy, intermittent, and does not radiate. Onset: The symptoms/episode began/occurred 4 day(s) ago. The symptoms are aggravated by nothing. The symptoms are alleviated by nothing. Associated signs and symptoms: Pertinent positives: nausea. Severity of symptoms: Pain is currently a 3 / 10. The patient has experienced similar episodes in the past. Historical: - Allergies: 08:39 No Known Allergies; iw - Home Meds: 08:39 atorvastatin 10 mg Oral tab 1 tab once daily [Active]; duloxetine 30 mg Oral cpDR 1 cap iw once daily [Active]; losartan-hydrochlorothiazide 100-12.5 mg Oral tab 1 tab once daily [Active]; trazodone 100 mg Oral tab 1 tab nightly [Active]; - PMHx: 08:39 Hypertensive disorder; Hypercholesterolemia; iw - Immunization history:: Adult Immunizations Adult Immunizations up to date. - Social history:: Smoking status: Patient denies any tobacco usage or history of. ROS: 08:26 Constitutional: Negative for fever, chills, and weight loss, Eyes: Negative for injury, jl9 pain, redness, and discharge, ENT: Negative for injury, pain, and discharge, Neck: Negative for injury, pain, and swelling, Cardiovascular: Negative for chest pain, palpitations, and edema, Respiratory: Negative for shortness of breath, cough, wheezing, and pleuritic chest pain. 08:26 Back: Negative for injury and pain, : Negative for injury, bleeding, discharge, and swelling, MS/Extremity: Negative for injury and deformity, Skin: Negative for injury, rash, and discoloration, Neuro: Negative for headache, weakness, numbness, tingling, and seizure, Psych: Negative for depression, anxiety, suicide ideation, homicidal ideation, and hallucinations, Allergy/Immunology: Negative for hives, rash, and allergies, Endocrine: Negative for neck swelling, polydipsia, polyuria, polyphagia, and marked weight changes, Hematologic/Lymphatic: Negative for swollen nodes, abnormal bleeding, and unusual bruising. 08:26 Abdomen/GI: Positive for abdominal pain, nausea. Exam: 08:26 Constitutional: This is a well developed, well nourished patient who is awake, alert, jl9 and in no acute distress. Head/Face: Normocephalic, atraumatic. Eyes: Pupils equal round and reactive to light, extra-ocular motions intact. Lids and lashes normal. Conjunctiva and sclera are non-icteric and not injected. Cornea within normal limits. Periorbital areas with no swelling, redness, or edema. ENT: Mucous membranes moist. Neck: Trachea midline, no thyromegaly or masses palpated, and no cervical lymphadenopathy. Supple, full range of motion without nuchal rigidity, or vertebral point tenderness. No Meningismus. Chest/axilla: Normal chest wall appearance and motion. Nontender with no deformity. No lesions are appreciated. Cardiovascular: Regular rate and rhythm with a normal S1 and S2. No gallops, murmurs, or rubs. Normal PMI, no JVD. No pulse deficits. Respiratory: Lungs have equal breath sounds bilaterally, clear to auscultation and percussion. No rales, rhonchi or wheezes noted. No increased work of breathing, no retractions or nasal flaring. 08:26 Back: No spinal tenderness. No costovertebral tenderness. Full range of motion. Skin: Warm, dry with normal turgor. Normal color with no rashes, no lesions, and no evidence of cellulitis. 08:26 Abdomen/GI: Inspection: abdomen appears normal, Bowel sounds: normal, Palpation: mild abdominal tenderness, in the left lower quadrant, Rectal exam: Indicators: Liver: Vital Signs: 09:18 BP 117 / 87; Pulse 71; Resp 16; Temp 98; Pulse Ox 100% on R/A; Pain 4/10; iw MDM: 08:16 Patient medically screened. jl9 08:27 Data reviewed: vital signs, nurses notes. jl9 10:31 Counseling: I had a detailed discussion with the patient and/or guardian regarding: the 9 historical points, exam findings, and any diagnostic results supporting the discharge/admit diagnosis, lab results, radiology results, the need for outpatient follow up. Response to treatment: the patient's symptoms have markedly improved after treatment. 08/21 08:41 Order name: Comprehensive Metabolic Panel; Complete Time: 10:05 [facility] 08/21 08:41 Order name: Troponin High Sensitivity; Complete Time: 10:05 [facility] 08/21 08:21 Order name: CT Abd/Pelvis - IV Contrast Only 9 08/21 08:22 Order name: EKG; Complete Time: 11:43 [facility] 08/21 08:28 Order name: Abdomen ; Complete Time: 10:05 [facility] 08/21 08:41 Order name: Lipase; Complete Time: 10:05 [facility] 08/21 08:41 Order name: CBC with Automated Diff; Complete Time: 10:05 [facility] 08/21 08:59 Order name: Urine Dipstick-Ancillary; Complete Time: 10:05 [facility] 08/21 08:21 Order name: IV Saline Lock; Complete Time: 08:32 [facility] 08/21 08:21 Order name: Labs collected and sent; Complete Time: 08:33 [facility] 08/21 08:22 Order name: Urine Dipstick-Ancillary (obtain specimen); Complete Time: 08:59 jl Administered Medications: 08:58 Drug: morphine 2 mg Route: IVP; Infused Over: 4 mins; Site: right antecubital; bm7 10:56 Follow up: Response: Pain is decreased bm7 08:59 Drug: Zofran (Ondansetron) 4 mg Route: IVP; Site: right antecubital; bm7 10:56 Follow up: Response: Nausea is decreased bm7 Disposition: 16:32 Co-signature as Attending Physician, Sahil Larose MD. rn Disposition Summary: 08/21/22 10:32 Discharge Ordered Location: Home jl9 Condition: Stable jl9 Diagnosis - Diverticulitis of intestine, part unspecified, without perforation or abscess jl9 without bleeding Followup: jl9 - With: Private Physician - When: 1 - 2 days - Reason: Recheck today's complaints, Continuance of care, Re-evaluation by your physician Discharge Instructions: - Discharge Summary Sheet jl9 - Diverticulitis, Petx-ia-Lkzs jl9 Forms: - Medication Reconciliation Form jl9 - Thank You Letter jl9 - Antibiotic Education jl9 - Prescription Opioid Use jl9 Prescriptions: - Amoxicillin 875 mg Oral Tablet - take 1 tablet by ORAL route every 8 hours for 5 days; 15 tablet; Refills: 0, jl9 Product Selection Permitted - ondansetron 8 mg Oral tablet,disintegrating - take 1 tablet by ORAL route every 8 hours As needed; 20 tablet; Refills: 0, jl9 Product Selection Permitted Signatures: Dispatcher [employer] Pamela Lopez, RN Sahil Fernandez MD MD rn McCarthy, Brittany, RN RN bm7 Linares, John jl9
[2022-08-22 20:05] VITALS: BP 117/87; TEMP 98; O2SAT 100
== END 2022-08-21 10:56 | disposition home or self-care (01) ==
LOC: ER 08:00
DX: K57.32 Diverticulitis of large intestine without perforation or abscess without bleeding (principal); I10 Essential (primary) hypertension
CPT/HCPCS: 85025; 36415; 81003; 84484; 83690; 80053; 74177; 96375; 96374; 99284; Q9967; J2405